=== PATIENT | male | born 1935 | race Caucasian/White ===

== ENCOUNTER → 2020-02-05 10:00 | Outpatient (BNVA) | payer MEDICARE, SELFPAY | PROVIDERS: Family Provider Nurse Practitioner Family; PCP Nurse Practitioner Family; Visit Provider Internal Medicine | DX: E87.6 Hypokalemia (principal); N18.3 Chronic kidney disease, stage 3 (moderate); E03.9 Hypothyroidism, unspecified; F03.91 Unspecified dementia, unspecified severity, with behavioral disturbance; K75.81 Nonalcoholic steatohepatitis (NASH); I10 Essential (primary) hypertension; K21.9 Gastro-esophageal reflux disease without esophagitis | CPT/HCPCS: 80048; 80061; 84443; 85025 ==

== ENCOUNTER → 2020-06-16 16:28 | Outpatient (BNVA) | payer MEDICARE, SELFPAY | PROVIDERS: Family Provider Nurse Practitioner Family; PCP Internal Medicine; Visit Provider Internal Medicine | DX: K75.81 Nonalcoholic steatohepatitis (NASH) (principal); N18.3 Chronic kidney disease, stage 3 (moderate); R63.0 Anorexia; E11.9 Type 2 diabetes mellitus without complications; E87.6 Hypokalemia; E03.9 Hypothyroidism, unspecified; R06.00 Dyspnea, unspecified | CPT/HCPCS: 80053; 80061; 83036; 84443; 85025 ==

== ENCOUNTER 2020-11-04 13:30 | Emergency (ER) | payer MEDICARE, SELFPAY ==
[2020-11-04 13:30] VITALS: BP 106/53; PULSE 72; RESP 16; TEMP 36.8; O2SAT 96; BMI 23.0
--- NOTE | 2020-11-04 14:52 | XR_ITS ---
WS: [id number] RIGHT HIP HISTORY: R hip pain after fall COMPARISON: None available. Right hip: No acute fracture or dislocation. Moderately severe narrowing of the RIGHT hip joint. Mode rate osteophytic ridging around the acetabulum. No fractures are identified. Pubic rami are normally aligned. Moderate femoral artery calcification. XR/XR hip RT 2-3V wo/w pel* [id number] IMPRESSION: 1. No hip fracture. 2. 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
--- NOTE | 2020-11-04 14:52 | ECG_ITS ---
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: : [id number] Requested By: Damon Jacob Order Number: [id number] Reading MD: ESTHER ACKERMAN Measurements Intervals [place] Rate: 75 P: 20 CT: 191 QRS: -18 QRSD: 106 T: 5 QT: 375 QTc: 419 Interpretive Statements SINUS RHYTHM WITH OCCASIONAL VENTRICULAR PREMATURE COMPLEXES Compared to ECG 04/04/2017 15:06:30 Ventricular premature complex(es) now present Left-axis deviation no longer present Myocardial infarct finding no longer present Electronically Signed On 11-04-2020 18:16:52 MANAGEMENT ASSISTANT by ESTHER ACKERMAN [email or web address]
--- NOTE | 2020-11-04 15:05 | W.ED.FALL ---
HPI - Fall General: Chief Complaint: Fall Stated Complaint: R hip pain Time Seen by Provider: 11/04/20 14:45 History of Present Illness: HPI Narrative: 85-year-old male presents emergency room from home. He had a fall at home is complaining of some pain. Evidently fell yesterday has been up to 4 hours on the floor according to family members here with him. Denies striking his head denies losing consciousness he has not taken his morning medications. Uncertain how accurate his history is from him to the family provided some of the details. MD complaint: fall Onset (ago): day(s) Fall from: standing Fall witnessed: no Place fall occurred: home Loss of consciousness: None Prolonged down time: yes and hour(s) (4) Context: tripped/slipped Location of injury - extremities: Right: thigh (hip) Associated symptoms-after fall: Reports difficulty walking; Denies abdominal pain, chest pain, confusion, headache(s), hematuria, lightheadedness, neck pain, numbness, short of breath, vertigo or weakness Review of Systems Const: Denies: fever(s), chills, body aches, change in appetite, fatigue or malaise ENMT: Denies: throat pain, ear or mastoid pain, nasal discharge or nasal congestion Card: Denies: chest pain or lightheadedness Resp: Denies: dyspnea, productive cough or non-productive cough GI: Denies: abdominal pain : Denies: hematuria Musc: Denies: neck pain Skin/Breast: Denies: rash or pruritus Neuro: Reports: difficulty walking; Denies: headache(s), vertigo or confusion [facility] ED PFSH: Medical History (Updated 11/04/20 @ 16:07 by Damon Huerta DO) CKD (chronic kidney disease), stage III Dementia with behavioral disturbance Essential (primary) hypertension GERD (gastroesophageal reflux disease) Surgical History History of colonoscopy History of esophagogastroduodenoscopy (EGD) 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 Family History Mother Diabetes Father Myocardial infarction Other Hypertension Social History Smoking and tobacco status: never smoked Alcohol intake: never Lives independently: No ([facility]) Marital status: Current occupational status: retired History of recent travel: No Physical Exam Const: COMMON NORMALS: no acute distress GENERAL APPEARANCE: cooperative and comfortable HENMT: COMMON NORMALS: normocephalic, atraumatic and hearing grossly normal bilaterally HEAD & SCALP: normocephalic and atraumatic Eye: COMMON NORMALS: Equal, round and reactive pupils present, EOMs intact bilaterally, conjunctivae normal and no scleral icterus CONJUNCTIVA: Yes conjunctivae normal PUPIL: Yes Equal, round and reactive pupils present Neck/C-Spine: COMMON NORMALS: full ROM, no lymphadenopathy, supple and no JVD Lymph: LYMPHATIC: no lymphadenopathy noted and no lymphedema noted Resp: COMMON NORMALS: normal respiratory effort, No retractions, No use of accessory muscles and clear to auscultation bilaterally AUSCULTATION: clear to auscultation bilaterally Cardio: COMMON NORMALS: no JVD, regular rate, regular rhythm and No murmurs present (Cardio) RATE: regular rate RHYTHM: regular rhythm GI: COMMON NORMALS: Soft to palpation and No hepatosplenomegaly present AUSCULTATION: Yes normoactive bowel sounds PALPATION: Yes Soft to palpation, No Tenderness to palpation present (GI), No Guarding due to palpation present (GI) and Yes No hepatosplenomegaly present Extremity: COMMON NORMALS: normal to inspection, capillary refill normal, no clubbing, cyanosis or edema, no calf tenderness and no pedal edema Skin: COMMON NORMALS: no rashes or lesions noted GENERAL SKIN EXAM: no rashes or lesions noted Course Vital Signs: Vital signs: Vital Signs Temperature 98.2 F 11/04/20 13:30 Pulse Rate 73 11/04/20 16:41 Respiratory Rate 20 H 11/04/20 16:41 Blood Pressure 110/59 11/04/20 16:41 Pulse Oximetry 96 11/04/20 13:30 MDM - Fall MDM Narrative: Medical decision making narrative: Reviewed findings with the patient we will discharge him home. X-rays show no acute fractures he is able to ambulate suspect he can need a higher level of care. He demonstrated ability to ambulate in the emergency room. We will get him set up for home health for PT. Lab Data: Labs: Lab Results 11/04/20 11/04/20 11/04/20 Range/Units 15:22 15:22 15:22 WBC 9.1 (4.0-10.0) 10^3/ uL RBC 4.40 (4.1-5.3) 10^6/u L Hgb 12.9 (11.7-16.6) g/dL Hct 38.5 L (42.0-52.0) % MCV 87.5 (80-94) fL MCH 29.3 (28.0-34.0) pg MCHC 33.5 (30.0-36.0) g/dL RDW 13.0 (12.1-15.1) % Plt Count 185 (130-400) 10^3/c mm MPV 10.4 (7.4-10.4) fL Neut % (Auto) 73.8 % Lymph % (Auto) 12.4 % [place] % (Auto) 11.8 % Eos % (Auto) 1.2 % Baso % (Auto) 0.6 % Neut # (Auto) 6.68 (1.8-7.7) 10^3/u L Lymph # (Auto) 1.1 (0.8-4.8) 10^3/u L [place] # (Auto) 1.1 H (0.2-0.9) 10^3/u L Eos # (Auto) 0.1 (0.0-0.8) 10^3/u L Baso # (Auto) 0.1 (0.0-0.1) 10^3/u L Nucleated RBC % (a uto) 0 % Nucleated RBCs # 0.0 /100WBC Sodium 139 (136-145) mmol/L Potassium 3.7 (3.5-5.1) mmol/L Chloride 100 (98-107) mmol/L Carbon Dioxide 26 (22-29) mmol/L Anion Gap 16.7 (5-19) BUN 12 (8-23) mg/dL Creatinine 1.5 H (0.7-1.2) mg/dL GFR Calculation Not Reportable Glucose 101 (65-115) mg/dL Calculated Osmolal ity 288 (285-295) mOsm/k g Calcium 9.2 (8.5-10.5) mg/dL Creatine Kinase 59 (39-308) U/L Discharge Plan Discharge Patient Disposition: Home Clinical Impression: Fall, Dementia Condition: Stable Prescriptions: No Action glucos sul [id number] PO QDAY RF: 0 multivitamin Tablet 1 tab PO QAM RF: 0 nitroglycerin 0.4 mg tablet, sublingual 0.4 mg SUBLINGUAL Q5M PRNRF: 0 pantoprazole 40 mg tablet,delayed release (DR/EC) 40 mg PO QDAY Qty: 90 RF: 3 valsartan-hydrochlorothiazide 320-25 mg tablet 1 tab PO QDAY Qty: 90 RF: 3 Eldertonic 0.5-0.6-7-0.7 mg elixir 30 ml PO BID Qty: 473 RF: 8 memantine [Namenda XR] 28 mg capsule,sprinkle,ER 24hr 28 mg PO DAILY MDD 1 90 Days Qty: 90 RF: 2 amlodipine 10 mg tablet 10 mg PO QDAY Qty: 90 RF: 3 Discharge Orders: Discharge ED (Routine); Ordered 11/04/20 Ordered By: Damon Huerta Referrals: Karl Saenz MD [Primary Care Provider] - Discharge Diet: Usual diet Discharge Activity: Resume usual activity Patient Instructions: Opioid Safety Coding Level of Care Code ED Assembler Surgical Garment for Sanchez Fwd Exam Comprehensive
[2020-11-04 15:31] LABS: Basophils # 0.1 10^3/uL (0.0-0.1); Basophils % 0.6 %; Eosinophils # 0.1 10^3/uL (0.0-0.8); Eosinophils % 1.2 %; Hematocrit 38.5 % (42.0-52.0); Hemoglobin 12.9 g/dL (11.7-16.6); Lymphocytes # 1.1 10^3/uL (0.8-4.8); Lymphocytes % 12.4 %; Mean Corpuscular HGB Conc 33.5 g/dL (30.0-36.0); Mean Corpuscular Hemoglobin 29.3 pg (28.0-34.0); Mean Corpuscular Volume 87.5 fL (80-94); Mean Platelet Volume 10.4 fL (7.4-10.4); Monocytes # 1.1 10^3/uL (0.2-0.9); Monocytes % 11.8 %; Neutrophils # 6.68 10^3/uL (1.8-7.7); Neutrophils % 73.8 %; Nucleated Red Blood Cells % 0 %; Platelet Count 185 10^3/cmm (130-400); White Blood Count 9.1 10^3/uL (4.0-10.0)
[2020-11-04 15:51] LABS: Anion Gap 16.7 (5-19); Blood Urea Nitrogen 12 mg/dL (8-23); Calcium 9.2 mg/dL (8.5-10.5); Carbon Dioxide 26 mmol/L (22-29); Chloride 100 mmol/L (98-107); Glucose 101 mg/dL (65-115); Osmolality Calculated 288 mOsm/kg (285-295); Potassium 3.7 mmol/L (3.5-5.1); Sodium 139 mmol/L (136-145)
[2020-11-04 16:37] LABS: Creatine Phosphokinase 59 U/L (39-308)
--- NOTE | 2020-11-04 16:39 | PC.NURSE ---
patient ambulated with his walker tolerated well
[2020-11-04 16:41] VITALS: BP 110/59; PULSE 73; RESP 20
[2020-11-04 16:52] VITALS: BP 104/70; PULSE 89; RESP 20; O2SAT 98
== END 2020-11-04 16:53 | disposition home or self-care (01) ==
PROVIDERS: Emergency Provider Family Medicine; PCP Internal Medicine
DX: F03.90 Unspecified dementia, unspecified severity, without behavioral disturbance, psychotic disturbance, mood disturbance, and anxiety (principal); I12.9 Hypertensive chronic kidney disease with stage 1 through stage 4 chronic kidney disease, or unspecified chronic kidney disease; N18.30 Chronic kidney disease, stage 3 unspecified
CPT/HCPCS: 73502; 80048; 82550; 85025; 93005; 99283

== ENCOUNTER 2021-05-15 01:10 | Emergency (ER) | payer MEDICARE, MEDICAID, SELFPAY ==
[2021-05-15 01:15] VITALS: BP 150/93; PULSE 76; RESP 16; TEMP 36.6; O2SAT 94; BMI 25.7
[2021-05-15 01:19] VITALS: PULSE 66; RESP 18; O2SAT 95
--- NOTE | 2021-05-15 01:47 | CTR_ITS ---
PROCEDURE INFORMATION: Exam: CT Head Without Contrast Exam date and time: 05/15/2021 1:47 AM Age: 86 years old Clinical indication: Injury or trauma; Fall; Blunt trauma (contusions or hematomas); Consciousness not specified; Injury details: Lac to left eye TECHNIQUE: Imaging protocol: Computed tomography of the head without contrast. Radiation optimization: All CT scans at this facility use at least one of these dose optimization techniques: automated exposure control; mA and/or kV adjustment per patient size (includes targeted exams where dose is matched to clinical indication); or iterative reconstruction. COMPARISON: No relevant prior studies available. RADIATION DOSE METRICS: Total DLP (mGy-cm): 1048.7 FINDINGS: Brain: No acute intracranial hemorrhage or mass effect. There is decreased attenuation in the periventricular white matter, likely from microvascular disease. There is an old lacunar infarct in the left basal ganglia region. No definite acute infarct by CT. MRI could be more sensitive/specific for detection, as clinically directed. Cerebral ventricles: Ventricle size is normal for age. Paranasal sinuses: Included paranasal sinuses are essentially clear. Mastoid air cells: No significant acute finding. Vasculature: Vascular calcifications in the internal carotid and vertebral basilar systems. Bones/joints: No definite acute skull fracture. Soft tissues: Soft tissue swelling lateral to the left orbit. CT/CT head wo con* [id number] IMPRESSION: 1. No acute intracranial hemorrhage or mass effect. 2. Changes of microvascular disease, and old left lacunar infarct. 3. No definite acute infarct by CT, see above. 4. Other findings discussed above. Radiation Dose CTDIVOL = (mGy): DLP = 1048.7 (mGy-cm)
--- NOTE | 2021-05-15 02:05 | W.ED.FALL ---
HPI - Fall General: Chief Complaint: Fall Stated Complaint: FALL/ LAC TO L EYE Time Seen by Provider: 05/15/21 01:18 History of Present Illness: HPI Narrative: 86-year-old male who is a poor historian. According to [facility] staff he was found 30 minutes or so after a fall where he sustained a head injury. There is a small lack over his left eye. He doess not complain of any pain. MD complaint: fall Onset (ago): minute(s) Fall witnessed: no Place fall occurred: [facility] Loss of consciousness: Unsure Prolonged down time: minute(s) (30) Symptoms prior to fall: other (Unknown) Location of injury: head Associated symptoms-after fall: Denies abdominal pain, chest pain, headache(s), neck pain or short of breath Review of Systems Const: Denies: fever(s) Card: Denies: chest pain GI: Denies: abdominal pain Musc: Denies: neck pain Neuro: Denies: headache(s) [facility] ED PFSH: Medical History (Updated 05/15/21 @ 03:56 by Roque Moyer DO) CKD (chronic kidney disease), stage III Dementia with behavioral disturbance Essential (primary) hypertension GERD (gastroesophageal reflux disease) Surgical History History of colonoscopy History of esophagogastroduodenoscopy (EGD) 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 Family History Mother Diabetes Father Myocardial infarction Other Hypertension Social History Smoking and tobacco status: never smoked Alcohol intake: never Lives independently: No ([facility]) Marital status: Current occupational status: retired History of recent travel: No Physical Exam Const: COMMON NORMALS: no acute distress and alert GENERAL APPEARANCE: frail appearing NUTRITIONAL APPEARANCE: thin HENMT: HEAD & SCALP: contusion, hematoma (Small left supraorbital) and laceration (Small left supraorbital) Eye: COMMON NORMALS: Equal, round and reactive pupils present and EOMs intact bilaterally PUPIL: Yes Equal, round and reactive pupils present Chest: COMMONS NORMALS: normal inspection of the chest CHEST: No tenderness Resp: COMMON NORMALS: normal respiratory effort, No use of accessory muscles and clear to auscultation bilaterally AUSCULTATION: clear to auscultation bilaterally Cardio: COMMON NORMALS: Peripheral pulses 2+ throughout PERIPHERAL PULSES: Peripheral pulses 2+ throughout GI: COMMON NORMALS: Normal to inspection, nondistended, normoactive bowel sounds present, Soft to palpation and non-tender PALPATION: Yes Soft to palpation Back/Pelvis: PELVIS: Yes no pain with anterior-posterior compression Extremity: COMMON NORMALS: normal to inspection NARRATIVE EXTREMITY EXAM: Upper extremity painless range of motion bilaterally. Lower extremities are contracted to some degree, but there is no deformity. Neuro: NORBERTO COMA SCALE: document GCS findings Norberto coma scale eye opening: Spontaneous Norberto coma scale verbal response: Confused [place] coma scale motor response: Obey commands Norberto coma scale total score: 14 SENSORIUM/ORIENTATION: Yes alert Skin: NARRATIVE SKIN EXAM: 2 cm laceration to the left lateral supraorbital ridge. Clotted with blood. Procedures Laceration Laceration 1: Site: face Side (If applicable): left Size (cm): 2 Description: irregular Depth: simple, single layer Pre-repair: irrigated extensively Technique: other (Dermabond) Course Vital Signs: Vital signs: Vital Signs Temperature 97.8 F 05/15/21 01:15 Pulse Rate 66 05/15/21 01:19 Respiratory Rate 18 05/15/21 01:19 Blood Pressure 150/93 05/15/21 01:15 Pulse Oximetry 95 05/15/21 01:19 MDM - Fall MDM Narrative: Medical decision making narrative: CT nonacute. Wound cleansed. Closed with Dermabond. Small trickle of blood following that has clotted in the Dermabond. Discharge Plan Discharge Patient Disposition: [facility] Clinical Impression: Contusion of face Qualifiers: Encounter type: initial encounter Qualified Code(s): S00.83XA - Contusion of other part of head, initial encounter Facial laceration Qualifiers: Encounter type: initial encounter Qualified Code(s): S01.81XA - Laceration without foreign body of other part of head, initial encounter Condition: Stable Referrals: Karl Saenz MD [Primary Care Provider] - Discharge Diet: Usual diet Discharge Activity: Increase activity as tolerated Activity Restrictions/Additional Instructions: Keep wound dry x24 hours, then may wash with soap and running water. Do not scrub. Return for any vomiting, worsening mental status, other concerns. Coding Level of Care Code ED Operator Cavity Pump for Chg Fwd Exam Comprehensive
[2021-05-15 05:19] VITALS: BP 167/88; PULSE 77; RESP 20; O2SAT 97
--- NOTE | 2021-05-15 05:39 | PC.NURSE ---
4 cm laceration above left eyebrow cleaned with NS, closed with Dermabond by Dr. Moyer. Pressure dressing applied with non-adherent, 4x4's, and coban.
--- NOTE | 2021-05-15 05:44 | PC.NURSE ---
Report called to Barbra at [facility]. [employer] Transport notified to return pt to [place]. ETA after 0700.
[2021-05-15 08:58] VITALS: BP 150/85; PULSE 80; RESP 16; O2SAT 92
== END 2021-05-15 09:10 ==
PROVIDERS: Emergency Provider Emergency Medicine; PCP Internal Medicine
DX: S00.83XA Contusion of other part of head, initial encounter (principal); S01.81XA Laceration without foreign body of other part of head, initial encounter; I12.9 Hypertensive chronic kidney disease with stage 1 through stage 4 chronic kidney disease, or unspecified chronic kidney disease; N18.30 Chronic kidney disease, stage 3 unspecified; F03.90 Unspecified dementia, unspecified severity, without behavioral disturbance, psychotic disturbance, mood disturbance, and anxiety; W19.XXXA Unspecified fall, initial encounter; Y92.129 Unspecified place in nursing home as the place of occurrence of the external cause
CPT/HCPCS: 12011; 70450; 99283